=== PATIENT | female | born 1970 | race African-American/Black ===

== ENCOUNTER 2017-04-20 16:08 | Emergency (ER) | payer OTHER ==
[~2017-04-20] VITALS: Ht 162.6 cm; Wt 87.0 kg
[2017-04-20 16:09] VITALS: BP 145/88; PULSE 72; RESP 20; TEMP 98.8; O2SAT 97
--- NOTE | 2017-04-20 16:15 | PD ---
Physical Exam Time Seen by Provider: 16:14 Narrative 46 y/o female presents for evaluation of lightheadedness which started at 11: 30am. Vital signs reviewed. Seen at triage desk. Awaiting bed placement. Data Data Last Documented VS Vital Signs Date Time Temp Pulse Resp B/P Pulse Ox O2 Delivery O2 Flow Rate FiO2 04/20/17 16:09 98.8 72 20 145/88 97 Room Air MDM Medical Record Reviewed: Yes Supervised Visit with SUPRIYA: Yohan Bowles April 20, 2017 16:15
--- NOTE | 2017-04-20 16:39 | PD ---
HPI Chief Complaint: Dizziness Time Seen by Provider: 16:36 Travel History International Travel<30 days: No Contact w/Intl Traveler<30days: No Traveled to known affect area: No History of Present Illness HPI 46-year-old female presents to emergency Department with complaint of lightheadedness and dizziness since this morning at approximately 11:30 AM. Worse with standing up. Describes it as waviness, but denies spinning of the room. Denies chest pain, heart palpitations, shortness of breath, abdominal pain, nausea, vomiting. Reports her palpitations about a week ago but associates it with drinking too much caffeine. Denies headache. Denies history of anemia. Has hypertension and took blood pressure medication today as prescribed. Says that she has had lightheadedness and dizziness like this before but was told that it was high blood pressure and her medication was increased by her PCP. Has not taken any medications or tried any treatments to alleviate her symptoms. No known allergies. Has no other medical complaints. No other modifying factors or associated signs and symptoms. PFSH Past Medical History Hypertension: Yes Tetanus Vaccination: < 5 Years Influenza Vaccination: No ?: Not LMP: 12/05/2016 Social History Alcohol Use: No Tobacco Use: Yes (1986) Substance Use: No Allergies-Medications (Allergen,Severity, Reaction): Coded Allergies: No Known Allergies (Unverified , 04/20/17) Reported Meds & Prescriptions Reported Meds & Active Scripts Active Meclizine (Meclizine HCl) 25 Mg Tab 25 Mg PO DIRECTED PRN Review of Systems Except as stated in HPI: all other systems reviewed are Neg Physical Exam Narrative GENERAL: Well-nourished, well-developed female patient, in no acute distress SKIN: Warm and dry. HEAD: Atraumatic. Normocephalic. No facial droop noted. Tongue midline. EYES: Pupils equal and round at 4 mm with brisk reaction. No scleral icterus. No injection or drainage. PERRLA. EOMI. ENT: Mucosa pink and moist. Airway patent. NECK: Trachea midline. No lymphadenopathy. CARDIOVASCULAR: Regular rate and rhythm. No murmur appreciated. RESPIRATORY: No accessory muscle use. Clear to auscultation. Breath sounds equal bilaterally. GASTROINTESTINAL: Abdomen soft, non-tender, nondistended. Hepatic and splenic margins not palpable. Bowel sounds are active 4 quadrants. MUSCULOSKELETAL: No obvious deformities. No clubbing. No cyanosis. No edema. NEUROLOGICAL: Awake and alert. Oriented 3. No obvious cranial nerve deficits. Motor grossly within normal limits. Normal speech. No ataxia. No mid -line drift. Moves all extremities. 5/5 strength to all extremities. PSYCHIATRIC: Appropriate mood and affect; insight and judgment normal. Data Data Last Documented VS Vital Signs Date Time Temp Pulse Resp B/P Pulse Ox O2 Delivery O2 Flow Rate FiO2 04/20/17 18:21 68 16 137/77 04/20/17 16:09 98.8 97 Room Air Orders Basic Metabolic Panel (Bmp) (04/20/17 16:34) Complete Blood Count With Diff (04/20/17 16:34) Electrocardiogram (04/20/17 16:34) Orthostatic Vital Signs (04/20/17 16:34) Meclizine (Antivert) (04/20/17 16:45) Labs Laboratory Tests Test 04/20/17 17:40 White Blood Count 9.6 TH/MM3 Red Blood Count 4.42 MIL/MM3 Hemoglobin 12.9 GM/DL Hematocrit 39.0 % Mean Corpuscular Volume 88.3 FL Mean Corpuscular Hemoglobin 29.2 PG Mean Corpuscular Hemoglobin 33.0 % Concent Red Cell Distribution Width 13.4 % Platelet Count 248 TH/MM3 Mean Platelet Volume 8.3 FL Neutrophils (%) (Auto) 45.7 % Lymphocytes (%) (Auto) 39.8 % Monocytes (%) (Auto) 10.2 % Eosinophils (%) (Auto) 3.7 % Basophils (%) (Auto) 0.6 % Neutrophils # (Auto) 4.4 TH/MM3 Lymphocytes # (Auto) 3.8 TH/MM3 Monocytes # (Auto) 1.0 TH/MM3 Eosinophils # (Auto) 0.4 TH/MM3 Basophils # (Auto) 0.1 TH/MM3 CBC Comment DIFF FINAL Differential Comment Sodium Level 139 MEQ/L Potassium Level 3.8 MEQ/L Chloride Level 102 MEQ/L Carbon Dioxide Level 29.6 MEQ/L Anion Gap 7 MEQ/L Blood Urea Nitrogen 10 MG/DL Creatinine 0.61 MG/DL Estimat Glomerular Filtration 127 ML/MIN Rate Random Glucose 95 MG/DL Calcium Level 8.9 MG/DL [facility] Medical Decision Making Medical Screen Exam Complete: Yes Emergency Medical Condition: Yes Medical Record Reviewed: Yes Differential Diagnosis Dizziness, lightheadedness, benign positional vertigo, electrolyte imbalance, anemia, arrhythmia Narrative Course 46-year-old female with dizziness since approximately 11:30 this morning. Neuro exam is unremarkable. Orthostatic vital signs, EKG, CBC, BMP ordered. Meclizine ordered. 1840: CBC and BMP unremarkable. EKG with normal sinus rhythm; without ST elevation or depression. Reports some improvement in symptoms. Meclizine prescribed for home. Patient verbalizes understanding and agreement with treatment plan. Patient is medically cleared and stable for discharge. Discussed reasons to return to the emergency department. Instructed patient to follow up with primary care provider. Patient agrees with treatment plan. The patients vital signs are stable and the patient is stable for outpatient follow- up and treatment. Patient discharged home, stable and in no acute distress. Diagnosis Primary Impression: Dizziness Referrals: Primary Care Physician Patient Instructions: Dizziness (ED), General Instructions Departure Forms: Tests/Procedures, Work Release Enter return to work date: April 21, 2017 Additional Instructions: Meclizine as prescribed Follow-up with primary care provider Return to the emergency department immediately with worsening of symptoms Med/Other Pt SpecificInfo: Prescription(s) given Scripts Meclizine 25 Mg Tab25 Mg PO DIRECTED PRN (VERTIGO) #10 TAB Ref 0 Prov:Kristel Smith 04/20/17 Disposition: 01 DISCHARGE HOME Condition: Stable Kristel Smith April 20, 2017 16:39
[2017-04-20 16:43] VITALS: BP_SYST 161; BP_SYST 164; BP_SYST 169; BP_DIAS 82; BP_DIAS 87
[2017-04-20] MEDS ORDERED: MECLIZINE HCL 25 MG TAB PO ONE (16:45)
[2017-04-20 18:21] VITALS: BP 137/77; PULSE 68; RESP 16
[2017-04-20 18:26] LABS: AUTOMATED NEUTROPHIL # 4.4 TH/MM3 (1.8-7.7); BASOPHIL # 0.1 TH/MM3 (0-0.2); BASOPHIL % 0.6 % (0.0-2.0); EOSINOPHIL # 0.4 TH/MM3 (0-0.4); EOSINOPHIL % 3.7 % (0.0-4.0); HEMO FLAGS DIFF FINAL; LYMPH % 39.8 % (9.0-44.0); LYMPHOCYTE # 3.8 TH/MM3 (1.0-4.8); MEAN CELL VOLUME 88.3 FL (80.0-100.0); MEAN CORPUSCULAR HEMOGLOBIN 29.2 PG (27.0-34.0); MONO % 10.2 % (0.0-8.0); NEUT % 45.7 % (16.0-70.0); PLATELET COUNT 248 TH/MM3 (150-450); RED BLOOD COUNT 4.42 MIL/MM3 (4.00-5.30); RED CELL DISTRIBUTION WIDTH 13.4 % (11.6-17.2); WHITE BLOOD COUNT 9.6 TH/MM3 (4.0-11.0)
[2017-04-20 18:31] LABS: BICARBONATE 29.6 MEQ/L (21.0-32.0); POTASSIUM 3.8 MEQ/L (3.5-5.1)
[2017-04-20] MEDS ORDERED: MECL-62 PO (18:42)
--- NOTE | 2017-04-21 16:26 | EKG ---
Date Performed: 04/20/2017 Time Performed: 18:41:42 PTAGE: 46 years EKG: Sinus rhythm VOLTAGE CRITERIA FOR LVH NONSPECIFIC T-WAVE ABNORMALITY ABNORMAL ECG NO PREVIOUS TRACING DOCTOR: Talat Teixeira Interpretating Date/Time 04/21/2017 16:24:23
== END 2017-04-20 19:27 | disposition home or self-care (01) ==
LOC: NEPD 16:08
DX: R42 Dizziness and giddiness (principal)
CPT/HCPCS: 80048; 85025; 93005; 99284